=== PATIENT | female | born 1965 | race Caucasian/White ===

== ENCOUNTER 2020-10-28 17:40 | Inpatient (IN) | payer BC ==
[~2020-10-28] VITALS: Ht 172.7 cm; Wt 104.3 kg
[2020-10-28 18:54] LABS: BASOPHILS # (AUTO) 0.1 (0.0-0.1); BASOPHILS % 1.2 % (0.0-1.0); EOSINOPHILS # (AUTO) 0.2 (0.0-0.4); EOSINOPHILS % 2.8 % (0.0-6.0); HEMATOCRIT 41.8 % (34.2-44.1); HEMOGLOBIN 13.5 g/dL (12.0-16.0); LYMPHOCYTES # (AUTO) 3.5 (1.0-3.2); LYMPHOCYTES % 45.1 % (18.0-39.1); MEAN CORPUSCULAR HEMOGLOBIN 31.5 pg (28-32); MEAN CORPUSCULAR HGB CONC 32.3 g/dL (31-35); MEAN CORPUSCULAR VOLUME 97.4 fL (81-99); MONOCYTES # (AUTO) 0.6 (0.2-0.8); MONOCYTES % 7.9 % (4.4-11.3); NEUTROPHILS # (AUTO) 3.3 (2.1-6.9); NEUTROPHILS % 42.7 % (38.7-80.0); PLATELET COUNT 248 x10e3/uL (140-360); RED BLOOD COUNT 4.29 x10e6/uL (3.6-5.1); RED CELL DISTRIBUTION WIDTH 12.5 % (11.7-14.4)
[2020-10-28 19:17] LABS: ALANINE AMINOTRANSFERASE 18 IU/L (0-55); ALBUMIN 3.6 g/dL (3.5-5.0); ALBUMIN/GLOBULIN RATIO 1.1 (0.8-2.0); ALKALINE PHOSPHATASE 112 IU/L (40-150); ANION GAP 14.3 mmol/L (8-16); BLOOD UREA NITROGEN 15 mg/dL (7-26); BUN/CREATININE RATIO 18 (6-25); CALCIUM 8.8 mg/dL (8.4-10.2); CARBON DIOXIDE 24 mmol/L (22-29); CHLORIDE 109 mmol/L (98-107); CREATINE KINASE 60 IU/L (29-168); CREATININE, SERUM 0.83 mg/dL (0.57-1.11); EST GLOMERULAR FILTRATION RATE > 60 ML/MIN (60-); GLUCOSE 90 mg/dL (74-118); POTASSIUM 4.3 mmol/L (3.5-5.1); SODIUM 143 mmol/L (136-145)
[2020-10-28 21:10] LABS: FREE THYROXINE INDEX 1.8363 (1.4-3.8); THYROID STIMULATING HORMONE 4.593 uIU/mL (0.350-4.940)
[2020-10-28 21:45] VITALS: BP 168/99
[2020-10-28 21:49] VITALS: BP 151/95
[2020-10-29] VITALS (9 sets, daily range): BP systolic 151–185; BP diastolic 99–139
[2020-10-29] MEDS ORDERED: TYLENOL325 MG PO (04:27)
[2020-10-29] MEDS ORDERED: SYNTHROID100 MCG PO (04:27)
[2020-10-29] MEDS ORDERED: ADDERALL XR 3030 MG PO (04:27)
[2020-10-29 05:55] LABS: BASOPHILS # (AUTO) 0.1 (0.0-0.1); EOSINOPHILS # (AUTO) 0.2 (0.0-0.4); EOSINOPHILS % 2.6 % (0.0-6.0); HEMATOCRIT 40.3 % (34.2-44.1); LYMPHOCYTES # (AUTO) 3.8 (1.0-3.2); LYMPHOCYTES % 40.6 % (18.0-39.1); MEAN CORPUSCULAR HEMOGLOBIN 31.6 pg (28-32); MEAN CORPUSCULAR HGB CONC 32.3 g/dL (31-35); MEAN CORPUSCULAR VOLUME 97.8 fL (81-99); MONOCYTES # (AUTO) 0.6 (0.2-0.8); MONOCYTES % 6.8 % (4.4-11.3); NEUTROPHILS # (AUTO) 4.5 (2.1-6.9); NEUTROPHILS % 48.7 % (38.7-80.0); PLATELET COUNT 241 x10e3/uL (140-360); RED BLOOD COUNT 4.12 x10e6/uL (3.6-5.1); RED CELL DISTRIBUTION WIDTH 12.4 % (11.7-14.4)
[2020-10-29 06:31] LABS: ALANINE AMINOTRANSFERASE 16 IU/L (0-55); ALBUMIN 3.5 g/dL (3.5-5.0); ALBUMIN/GLOBULIN RATIO 1.1 (0.8-2.0); ALKALINE PHOSPHATASE 110 IU/L (40-150); ANION GAP 11.8 mmol/L (8-16); BLOOD UREA NITROGEN 13 mg/dL (7-26); BUN/CREATININE RATIO 16 (6-25); CALCIUM 8.7 mg/dL (8.4-10.2); CARBON DIOXIDE 27 mmol/L (22-29); CHLORIDE 107 mmol/L (98-107); CREATININE, SERUM 0.82 mg/dL (0.57-1.11); EST GLOMERULAR FILTRATION RATE > 60 ML/MIN (60-); GLUCOSE 90 mg/dL (74-118); POTASSIUM 3.8 mmol/L (3.5-5.1); SODIUM 142 mmol/L (136-145)
[2020-10-29 06:50] LABS: CREATINE KINASE MB 2.2 ng/mL (0-5.0)
[2020-10-29] MEDS ORDERED: DIAZEPAM 5 MG TAB PO ONE (12:15)
[2020-10-29 14:48] LABS: CREATINE KINASE MB 2.3 ng/mL (0-5.0)
[2020-10-29] MEDS ORDERED: CLONIDINE HCL 0.1 MG TAB PO PRN (21:45)
[2020-10-29] MEDS: LOSARTAN POTASSIUM 25 MG TAB PO SCH (22:36)
[2020-10-29] MEDS: HYDROCODONE/APAP 5MG-325MG TAB PO PRN (22:37)
[2020-10-29] MEDS: ALPRAZOLAM 0.25 MG TAB PO PRN (22:38)
[2020-10-30] VITALS (8 sets, daily range): BP systolic 126–163; BP diastolic 81–108
[2020-10-30] MEDS: HYDROCODONE/APAP 5MG-325MG TAB PO PRN ×3 (05:07→18:38)
[2020-10-30] MEDS: ALPRAZOLAM 0.25 MG TAB PO PRN ×3 (05:07→18:38)
[2020-10-30] MEDS ORDERED: LOSARTAN POTASSIUM 100 MG TAB PO SCH (09:00)
[2020-10-30] MEDS: LOSARTAN POTASSIUM 25 MG TAB PO SCH ×2 (09:03→18:29)
[2020-10-30] MEDS: AMLODIPINE BESYLATE 10 MG TAB PO SCH (09:03)
[2020-10-31 00:10] VITALS: BP 139/91
[2020-10-31] MEDS: HYDROCODONE/APAP 5MG-325MG TAB PO PRN ×3 (00:39→12:56)
[2020-10-31] MEDS: ALPRAZOLAM 0.25 MG TAB PO PRN ×3 (00:39→13:02)
[2020-10-31 04:00] VITALS: BP 127/78
[2020-10-31 07:30] VITALS: BP 127/89
[2020-10-31] MEDS: AMLODIPINE BESYLATE 10 MG TAB PO SCH (08:12)
[2020-10-31] MEDS: LOSARTAN POTASSIUM 25 MG TAB PO SCH ×2 (08:12→15:45)
[2020-10-31 08:36] VITALS: BP 127/89
[2020-10-31 11:06] VITALS: BP 112/70
[2020-10-31 15:17] VITALS: BP 107/79
[2020-10-31] MEDS ORDERED: KEPPRA500 MG PO (17:10)
== END 2020-10-31 17:53 | disposition home or self-care (01) | DRG 312 ==
LOC: ER 18:41 → ERHOLD 18:44 → MED/SURG 22:04
PROVIDERS: ADMIT Family Medicine; ATTEND Family Medicine
DX: R55 Syncope and collapse (principal); R41.82 Altered mental status, unspecified; F90.9 Attention-deficit hyperactivity disorder, unspecified type; Z98.1 Arthrodesis status; E03.9 Hypothyroidism, unspecified; E66.01 Morbid (severe) obesity due to excess calories; Z68.35 Body mass index [BMI] 35.0-35.9, adult; F17.210 Nicotine dependence, cigarettes, uncomplicated; Z20.822 Contact with and (suspected) exposure to COVID-19
CPT/HCPCS: 36415; 70450; 70544; 70547; 71045; 80053; 82140; 82550; 82553; 82607; 83874; 84146; 84436; 84443; 84479; 84484; 85025; 85651; 86140; 93005; 93306; 95812; 99284; U0002